=== PATIENT | male | born 1975 | race Caucasian/White ===

== ENCOUNTER 2024-09-08 10:39 | Emergency (ER) | payer OTHER, SELFPAY ==
--- OUTSIDE RECORDS SUMMARY | 2024-09-08 10:42 | XMS REPORT | Clinical Summary ---
Author Name Unknown Organization [facility] Address [address] [place] [address] Care Team Providers Care Hospital Insurance Clerk Name Role Phone Rosa Maria Bernal PhD Unavailable [phone] Addi Jiménez MD Unavailable [phone] Hernan Dick MD Unavailable [phone] Danie Erwin MD Unavailable Addi Cifuentes PhD Unavailable [phone] Nidhi Anderson APRN Unavailable [phone] Robyn Guevara MD Unavailable [phone] Allergies No known active allergies Medications * This document contains information received from the source organization and may not represent a complete record from that organization. losartan (COZAAR) 50 mg tablet Take 50 mg by mouth daily. Active rOPINIRole (REQUIP) 5 mg tablet Take 5 mg by mouth at bedtime. Reported on 11/27/2016 Active LORazepam (ATIVAN) 0.5 mg tabletIndicatio ns:Nausea Second choice for nausea. Use if Zofran ineffective. 30 tablet 6 Active Additional Information Patient not taking.Reported on 03/31/2016 valACYclovir (VALTREX) 500 mg tabletIndicatio ns:Herpes labialis Take 1 tablet (500 mg total) by mouth daily. 90 tablet 3 6 Active Additional Information Patient not taking.Reported on 03/06/2016 gabapentin (NEURONTIN) 300 mg capsuleIndicati ons:Restless legs syndrome (RLS) Take 300mg po QHS X3 days then increase to 600mg po QHS 60 capsule 3 6 Active Additional Information Patient not taking.Reported on 05/15/2016 zolpidem (AMBIEN) 10 mg tabletIndicatio ns:Adjustment disorder with anxiety Take 1 tablet (10 mg total) by mouth nightly as needed for sleep. 30 tablet 2 6 Active Additional Information Patient not taking.Reported on 09/25/2016 diphenhydrAMINE (BENADRYL) 25 mg capsuleIndicati ons:Allergy, unspecified, initial encounter,Aller gic urticaria Take 1 capsule (25 mg total) by mouth every 8 (eight) hours as needed for itching or allergies. 10 capsule 6 Active Additional Information Patient not taking.Reported on 05/15/2016 hydrOXYzine HCl (ATARAX) 25 mg tabletIndicatio ns:Oligodendrog lioma Take 1 tablet (25 mg total) by mouth every 8 (eight) hours as needed for itching. Take regularly at night 90 tablet 2 6 Active Additional Information Patient not taking.Reported on 03/31/2016 sulfamethoxazol e-trimethoprim (BACTRIM DS) 800 mg-160 mg per tablet Take 1 tablet by mouth twice daily. Reported on 11/27/2016 Active ondansetron (ZOFRAN) 8 mg tabletIndicatio ns:Oligodendrog lioma Take 1 tablet by mouth 30 minutes prior to Lomustine (GLEOSTINE) and Procarbazine (MATULANE) then take 1 tablet every 8 hours as needed for nausea and vomiting. 30 tablet 3 6 Active Additional Information Patient not taking.Reported on 11/27/2016 amoxicillin-cla vulanate (AUGMENTIN) 875 mg-125 mg per tablet Take 1 tablet by mouth twice daily. Reported on 11/27/2016 0 7 Active levETIRAcetam (KEPPRA) 1000 mg tabletIndicatio ns:Oligodendrog lioma TAKE ONE TABLET BY MOUTH TWICE DAILY 10 tablet 17 8 Active levETIRAcetam (KEPPRA) 1000 mg tabletIndicatio ns:Oligodendrog lioma Take 1000 mg in am and 1500 mg in pm. 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 with Dr. 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 Gender Identity Not on file Sexual Orientation Not on file 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 Not on file Not on file Obstetrics History Plan of Treatment Health Maintenance Due Date Last Done Comments COVID-19 Vaccine ( - 2023-2 5 season) 2024 Influenza Vaccine (#1) 2024 Pneumococcal Vaccine: Pediat rics (0 to 5 Years) and At-Risk Patients (6 to 64 Years) Aged Out No longer eligi ble based on patient's age to complete this topic Care Teams Hospital Insurance Clerk Relationship Specialty Start Date End Date Rosa Maria Bernal, PhD [address] [place] [address] [email or web address] Physician 10/20/15 Addi Jiménez MD [address] [place] [id number] [email or web address] Physician 10/20/15 Hernan Dick MD [facility] , [address] [place] [address] [email or web address] Physician 10/20/15 Danie Erwin MD [address] [place] [id number] [email or web address] Physician 10/20/15 Addi Cifuentes, PhD [address] [place] [id number] [email or web address] Physician 10/20/15 Nidhi Anderson APRN [address] [place] [id number] [email or web address] Nurse Practitioner 10/20/15 Robyn Guevara MD [address] [place] [id number] [email or web address] Consulting Physician Dermatology 03/06/16
--- NOTE | 2024-09-08 11:38 | RAD REPORT ---
EXAM: CT CHEST WITH CONTRAST CLINICAL INDICATION: upper rib tenderness;Blunt chest trauma TECHNIQUE: Routine CT scan of the chest with intravenous contrast. One or more of the following dose reduction techniques were used: Automated exposure control, adjustment of the mA and/or kV according to patient size, and/or iterative reconstruction. Unless otherwise specified, incidental fi ndings do not require dedicated imaging follow-up. COMPARISON: No prior exam. FINDINGS: LUNGS: Airways are clear. No evidence of airspace or interstitial process. No nodules. PLEURA: No pleural effusion. No pneumothorax. MEDIASTINUM AND LYMPH NODES: No mediastinal mass or fluid collection. Normal size mediastinal, hilar, and axillary lymph nodes. OSSEOUS STRUCTURES AND CHEST WALL: There is a mildly displaced fracture anterior left second rib clos e to the costosternal junction. UPPER ABDOMEN: Prominent diffuse fatty liver. IMPRESSION: Mildly displaced fracture anterior left second rib close to the costosternal junction.
--- NOTE | 2024-09-08 12:10 | ER ---
Nurse's Notes [facility] Name: Kem Chaves Age: 48 yrs Sex: Male : 1975 Arrival Date: 09/08/2024 Time: 10:39 Bed DX2 Private MD: Diagnosis: Fracture of one rib, left side Presentation: 09/08 10:59 Chief complaint: Patient states: he fell on a bar stool approx one week ago, and is ap3 having pain to the left upper chest area since. patient states coughing, sneezing and deep breathing make the pain worse. Coronavirus screen: At this time, the client does not indicate any symptoms associated with coronavirus-19. Ebola Screen: No symptoms or risks identified at this time. Initial Sepsis Screen: Does the patient meet any 2 criteria? No. Patient's initial sepsis screen is negative. Does the patient have a suspected source of infection? No. Patient's initial sepsis screen is negative. Risk Assessment: Do you want to hurt yourself or someone else? Patient reports no desire to harm self or others. Onset of symptoms was September 01, 2024. Mechanism of Injury: Fall. 10:59 Method Of Arrival: Ambulatory ap3 10:59 Acuity: URSZULA 3 ap3 Triage Assessment: 11:02 General: Appears uncomfortable, Behavior is calm, cooperative, appropriate for age. ap3 Pain: Complains of pain in anterior aspect of left upper chest Pain began one week ago. Neuro: Level of Consciousness is awake, alert, obeys commands, Oriented to person, place, time, situation, Appropriate for age Speech is normal. Cardiovascular: Patient's skin is warm and dry. Respiratory: Reports pain with cough pain with respiration Airway is patent Respiratory effort is even, unlabored. Historical: - Allergies: 11:04 No Known Allergies; ap3 - Home Meds: 11:04 lorazepam 0.5 mg Oral tab 1 tab 3 times per day [Active]; Keppra Oral [Active]; ap3 - PMHx: 11:02 Hypertension; Oligodendroglioma; ap3 - Immunization history:: Client reports having NOT received the Covid vaccine. Last tetanus immunization: unknown, Flu vaccine is not up to date. - Infectious Disease History:: Denies. - Social history:: Smoking status: Patient reports the use of cigarette tobacco products, smokes one-half pack cigarettes per day. - Family history:: not pertinent. - Hospitalizations: : No recent hospitalization is reported. Screenin:06 [facility] ED Fall Risk Assessment (Adult) History of falling in the last 3 months, ap3 including since admission Yes- single mechanical fall (1 pt) Confusion or Disorientation No (0 pts) Intoxicated or Sedated No (0 pts) Impaired Gait No (0 pts) Mobility Assist Device Used No (0 pt) Altered Elimination No (0 pt) Score/Fall Risk Level 0 - 2 = Low Risk Oriented to surroundings, Maintained a safe environment, Educated pt \T\ family on fall prevention, incl call for assistance when getting out of bed, Assessed \T\ reinforced patient's understanding of fall precautions, Hourly rounding (assess needs \T\ fall precautionary measures) done, Used ambulatory aids as needed (educated on \T\ assisted with), Used gait belt as appropriate. Abuse screen: Denies threats or abuse. Nutritional screening: No deficits noted. Tuberculosis screening: No symptoms or risk factors identified. Assessment: 12:43 General: Appears in no apparent distress. comfortable, Behavior is calm, cooperative. ss Pain: Complains of pain in anterior aspect of left upper chest Pain currently is 9 out of 10 on a pain scale. Quality of pain is described as tender. Neuro: Level of Consciousness is awake, alert, obeys commands, Oriented to person, place, time, situation. Respiratory: Airway is patent Respiratory effort is even, unlabored, Respiratory pattern is regular, symmetrical. EENT: Oral mucosa is moist. Vital Signs: 10:59 BP 146 / 97; Pulse 86; Resp 18; Temp 98.4(O); Pulse Ox 100% on R/A; ap3 11:03 Weight 102.06 kg; Height 6 ft. 1 in. ; Pain 9/10; ap3 11:03 Body Mass Index 29.68 (102.06 kg, 185.42 cm) ap3 11:03 Pain Scale: Adult ap3 ED Course: 10:43 Patient arrived in ED. sj2 10:47 Myles Rojas MD is Attending Physician. rn 11:02 Triage completed. ap3 11:06 Arm band placed on right wrist. ap3 11:06 Patient maintains SpO2 saturation greater than 95% on room air. ap3 11:26 CT Chest W/ Con In Process Unspecified. EDMS 11:29 Note: 22 G diffusics placed in left AC . ls3 12:44 No provider procedures requiring assistance completed. IV discontinued, intact, ss bleeding controlled, No redness/swelling at site. Pressure dressing applied. Administered Medications: No medications were administered Medication: 12:43 VIS not applicable for this client. ss Outcome: 12:10 Discharge ordered by . rn 12:44 Discharged to home ambulatory, ss 12:44 Condition: good 12:44 Discharge instructions given to patient, Instructed on discharge instructions, follow up and referral plans. Demonstrated understanding of instructions, follow-up care, 12:46 Patient left the ED. ss Signatures: Dispatcher [employer] EDMD Myles Rojas MD MD rn Blanchard, Shelby, RN RN Nicole Alamo RN RN [email or web address] Nikkie Rudolph ls3 Victor Hugo Pozo 2
--- NOTE | 2024-09-08 12:10 | EDPHYS ---
Physician Documentation [facility] Name: Kem Chaves Age: 48 yrs Sex: Male : 1975 Arrival Date: 09/08/2024 Time: 10:39 Bed DX2 Private MD: ED Physician Myles Rojas HPI: 09/08 11:07 This 48 yrs old Male presents to ER via Ambulatory with complaints of Fall Injury. rn 11:07 The patient or guardian reports chest pain that is located primarily in the anterior rn chest wall. 11:07 Onset: 1 week(s) ago. Details of fall: The patient fell from an upright position. rn Associated injuries: The patient sustained injury to the chest. The pain does not radiate. Associated signs and symptoms: Pertinent positives: cough, shortness of breath, Pertinent negatives: abdominal pain. The chest pain is described as sharp, stabbing. Duration: The patient or guardian reports multiple episodes. Modifying factors: The symptoms are alleviated by nothing. the symptoms are aggravated by cough, deep breath. Severity of pain: At its worst the pain was moderate in the emergency department the pain is unchanged. Severity of symptoms: At their worst the symptoms were moderate, in the emergency department the symptoms are unchanged. The patient has not experienced similar symptoms in the past. The patient has not recently seen a physician. Patient reports he tripped and fell forward and landed on a metal bench. Happened 1 week ago and reports isolated injury to the upper ribs anterior chest. No hemoptysis. Reports pain with deep inspiration.. Historical: - Allergies: 11:04 No Known Allergies; ap3 - Home Meds: 11:04 lorazepam 0.5 mg Oral tab 1 tab 3 times per day [Active]; Keppra Oral [Active]; ap3 - PMHx: 11:02 Hypertension; Oligodendroglioma; ap3 - Immunization history:: Client reports having NOT received the Covid vaccine. Last tetanus immunization: unknown, Flu vaccine is not up to date. - Infectious Disease History:: Denies. - Social history:: Smoking status: Patient reports the use of cigarette tobacco products, smokes one-half pack cigarettes per day. - Family history:: not pertinent. - Hospitalizations: : No recent hospitalization is reported. 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 No tenderness along the clavicles or shoulders. Cardiovascular: Regular rate and rhythm. No pulse deficits. Respiratory: No increased work of breathing, no retractions or nasal flaring. Abdomen/GI: Soft, non-tender MS/ Extremity: Pulses equal, no cyanosis. Neurovascular intact. Full, normal range of motion. Equal circumference. Neuro: Awake and alert, GCS 15 Vital Signs: 10:59 BP 146 / 97; Pulse 86; Resp 18; Temp 98.4(O); Pulse Ox 100% on R/A; ap3 11:03 Weight 102.06 kg; Height 6 ft. 1 in. ; Pain 9/10; ap3 11:03 Body Mass Index 29.68 (102.06 kg, 185.42 cm) ap3 11:03 Pain Scale: Adult ap3 MDM: 10:47 Medical Screening Exam initiated rn 11:57 Differential diagnosis: Rib fracture, rib contusion, pneumothorax. Data reviewed: vital rn signs, nurses notes, radiologic studies, and as a result, I will discharge patient. Counseling: I had a detailed discussion with the patient and/or guardian regarding the historical points, exam findings, and any diagnostic results supporting the discharge/admit diagnosis, radiology results, the need for outpatient follow up, to return to the emergency department if symptoms worsen or persist or if there are any questions or concerns that arise at home. Special discussion: I discussed with the patient/guardian in detail that at this point there is no indication for admission to the hospital. It is understood, however, that if the symptoms persist or worsen the patient needs to return immediately for re-evaluation. ED course: CT chest images show mildly displaced left 2nd anterior rib fracture, no pneumothorax, per my interpretation. Will dc home with incentive spirometry and return precautions. . 09/08 11:05 Order name: CT Chest W/ Con; Complete Time: 11:40 rn 09/08 11:05 Order name: IV Start; Complete Time: 12:31 rn Administered Medications: No medications were administered Disposition Summary: 09/08/24 12:10 Discharge Ordered Notes: Location: Home rn Problem: new rn Symptoms: have improved rn Condition: Stable rn Diagnosis - Fracture of one rib, left side rn Followup: rn - With: Private Physician - When: As needed - Reason: Recheck today's complaints, Re-evaluation by your physician Discharge Instructions: - Discharge Summary Sheet rn - Rib Fracture rn - How to Use an Incentive Spirometer rn Forms: - Medication Reconciliation Form rn - 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 EDNH EDMS
[2024-09-08 14:51] VITALS: BP 146/97; TEMP 98.4; O2SAT 100
== END 2024-09-08 12:46 | disposition home or self-care (01) ==
LOC: ER 10:39
DX: S22.32XA Fracture of one rib, left side, initial encounter for closed fracture (principal); W01.198A Fall on same level from slipping, tripping and stumbling with subsequent striking against other object, initial encounter; F17.210 Nicotine dependence, cigarettes, uncomplicated
CPT/HCPCS: 71260; 99283; Q9967

== ENCOUNTER 2024-11-02 08:45 | Emergency (ER) | payer OTHER ==
--- OUTSIDE RECORDS SUMMARY | 2024-11-02 08:49 | XMS REPORT | Clinical Summary ---
Author Name Unknown Organization [facility] Address [address] [place] [address] Care Team Providers Care Agriculture Laboratory Technician Name Role Phone Rosa Maria Bernal PhD Unavailable [phone] Addi Jiménez MD Unavailable [phone] Hernan Dick MD Unavailable [phone] Danie Erwin MD Unavailable Addi Cifuentes PhD Unavailable [phone] Nidhi Anderson APRN Unavailable [phone] Robyn Guevara MD Unavailable [phone] Allergies No known active allergies Medications [...] Site/Laterality Comments BRAIN SURGERY 04/14/2015 Left at [facility] BRAIN SURGERY 09/06/2015 Left at [facility] with Dr. 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 file Not on file Obstetrics History Plan of Treatment Health Maintenance Due Date Last Done Comments COVID-19 Vaccine ( - 2023-2 5 season) 2024 Influenza Vaccine (#1) 2024 Pneumococcal Vaccine Aged Out No long er eligible based on patient's age to complete this topic Care Teams Agriculture Laboratory Technician Relationship Specialty Start Date End Date Rosa Maria Bernal, PhD [address] [place] [address] [email or web address] Physician 10/20/15 Addi Jiménez MD [address] [place] [id number] [email or web address] Physician 10/20/15 Hernan Dick MD [facility] , [address] [place] [address] [email or web address] Physician 10/20/15 Danie Erwin MD [address] [place] [id number] [email or web address] Physician 10/20/15 Addi Cifuentes, PhD [address] [place] [address] [email or web address] Physician 10/20/15 Nidhi Anderson APRN [address] [place] [id number] [email or web address] Nurse Practitioner 10/20/15 Robyn Guevara MD [address] [place] [id number] [email or web address] Consulting Physician Dermatology 03/06/16
[2024-11-02] MEDS ORDERED: IBUPROFEN 400 MG TAB ONE (09:11)
--- NOTE | 2024-11-02 10:26 | RAD REPORT ---
EXAM: CT CHEST, ABDOMEN AND PELVIS WITHOUT CONTRAST CLINICAL INDICATION: Male, 48 years old. [facility] MAIN right lower anterior rib injury;Trauma Bed Name: 8 TECHNIQUE: CT chest, abdomen and pelvis was performed, without IV contrast, as per department protoco l. Axial, sagittal and coronal reconstructions were obtained. One or more of the following dose reduction techniques were used: Automated exposure control, adjustment of the mA and/or kV according to the patient size, and/or iterative reconstruction. Unless otherwise specified, incidental findings do not require dedicated imaging follow-up. COMPARISON: 09/08/2024 FINDINGS: The lack of intravenous contrast limits the sensitivity of this exam for evaluation of solid visceral organs, vascular structures, and retroperitoneum. Chest: LOWER NECK/CHEST WALL: Visualized thyroid gland and soft tissues are normal. LUNGS AND AIRWAYS: Airways are clear. No evidence of airspace or interstitial process. No nodules. PLEURA: No pleural effusion. No pneumothorax. Hemidiaphragms are normally positioned. MEDIASTINUM AND LYMPH NODES: No mediastinal mass or fluid collection. Normal size mediastinal, hilar, and axillary lymph nodes. THORACIC AORTA: Normal caliber and configuration. PULMONARY ARTERIES: Normal caliber. HEART: Unremarkable. Abdomen/Pelvis LIVER: Diffuse parenchymal hypoattenuation suggesting steatosis, with regional fatty sparing near the hilum gallbladder bed GALLBLADDER/BILE DUCTS: No biliary ductal dilatation. PANCREAS: No mass, ductal dilation, or taras-pancreatic fluid. SPLEEN: Normal size. No focal lesion. ADRENALS: Normal; no mass. KIDNEYS AND URETERS: Normal size and contour. No hydronephrosis. GASTROINTESTINAL TRACT: Stomach is non-dilated. Small bowel has normal course and caliber. No colonic wall thickening or pericolonic inflammatory changes. PERITONEUM: No free fluid. LYMPH NODES: No lymphadenopathy. ABDOMINAL AORTA AND OTHER VESSELS: Normal caliber aorta and IVC. URINARY BLADDER: Normal contour. REPRODUCTIVE ORGANS: No pathologic process. MUSCULOSKELETAL: Healing anterior left second rib fracture. ADDITIONAL FINDINGS: None IMPRESSION: Healing anterior left second rib fracture. No acute or significant abnormalities in the chest, abdomen, or pelvis.
--- NOTE | 2024-11-02 10:32 | ER ---
Nurse's Notes [facility] Name: Kem Chaves Age: 48 yrs Sex: Male : 1975 Arrival Date: 11/02/2024 Time: 08:45 Bed 8 Private MD: Diagnosis: Abdominal contusion, chest wall contusion Presentation: 11/02 09:00 Chief complaint: Patient states: Patient states he fell last night around 2100 and hit le1 is R rib area on a metal table. Patient not on blood thinners, no loc, no head trauma. Care prior to arrival: None. Mechanism of Injury: Fall from standing position. Trauma event details: Injury occurred in the [facility], Injury occurred: at home. Injury occurred: November 01, 2024 Injury occurred at: 21:00. Activity prior to arrival: None. 09:00 Acuity: [id number] 4 le1 09:00 Method Of Arrival: Ambulatory le1 09:15 Coronavirus screen: Vaccine status: Patient reports being unvaccinated. Client denies le1 travel out of the [place] in the last 14 days. At this time, the client does not indicate any symptoms associated with coronavirus-19. Ebola Screen: Patient negative for fever greater than or equal to 101.5 degrees Fahrenheit, and additional compatible Ebola Virus Disease symptoms Patient denies exposure to infectious person. Patient denies travel to an Ebola-affected area in the 21 days before illness onset. No symptoms or risks identified at this time. Initial Sepsis Screen: Does the patient meet any 2 criteria? HR > 90 bpm. No. Patient's initial sepsis screen is negative. Does the patient have a suspected source of infection? No. Patient's initial sepsis screen is negative. Risk Assessment: Do you want to hurt yourself or someone else? Patient reports no desire to harm self or others. Onset of symptoms was November 01, 2024. Trauma Activation: Physician: ED Physician; Name: ; Notified At: ; Arrived At: Physician: General Surgeon; Name: ; Notified At: ; Arrived At: Physician: Radiology; Name: ; Notified At: ; Arrived At: Physician: Respiratory; Name: ; Notified At: ; Arrived At: Physician: Lab; Name: ; Notified At: ; Arrived At: 09:17 No trauma activation at this time. 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 - Infectious Disease History:: Denies. - Social history:: Smoking status: Patient reports the use of cigarette tobacco products, smokes one-half pack cigarettes per day, Patient uses alcohol, occasionally. Patient/guardian denies using street drugs, IV drugs. Screenin:07 Abuse screen: Denies threats or abuse. Denies injuries from another. Nutritional le1 screening: No deficits noted. Tuberculosis screening: No symptoms or risk factors identified. Fall risk None identified. Exposure risk/Travel Screening: None identified. 09:14 [facility] ED Fall Risk Assessment (Adult) History of falling in the last 3 months, le1 including since admission Yes- single mechanical fall (1 pt) Confusion or Disorientation No (0 pts) Intoxicated or Sedated No (0 pts) Impaired Gait No (0 pts) Mobility Assist Device Used No (0 pt) Altered Elimination No (0 pt) Score/Fall Risk Level 0 - 2 = Low Risk Oriented to surroundings, Maintained a safe environment, Educated pt \T\ family on fall prevention, incl call for assistance when getting out of bed, Assessed \T\ reinforced patient's understanding of fall precautions, Hourly rounding (assess needs \T\ fall precautionary measures) done, Used ambulatory aids as needed (educated on \T\ assisted with). Primary Survey: 09:03 NO uncontrolled hemorrhage observed. A: The client is awake and alert. The airway is le1 patent. The client responds to verbal stimuli. Airway: patent, No supplemental oxygen in use on arrival. Oral cavity: clear, Trachea midline. Breathing/Chest: Spontaneous respiratory effort, equal unlabored respirations, breath sounds clear bilaterally, regular pattern, symmetrical chest rise and fall. Respiratory effort: spontaneous, unlabored, Breath sounds: clear, Respiratory pattern: regular, Chest inspection: symmetrical rise and fall of the chest. Circulation: No external hemorrhage present. Regular and strong central pulse, skin warm/dry/normal color. Disability Pupils are equal, round, reactive to light and accommodation. Client is alert. 09:14 Exposure/Environment: All clothing and personal items were removed. Forensic evidence le1 collection is not deemed to be indicated at this time. Items placed in patient belonging bag. There is no evidence of uncontrolled external bleeding. Obvious injury(ies) are noted at this time: R side rib cage bruising A warming method has been applied: None. patient refused warm blanket. Reassessment Alertness and Airway: Awake and alert. The airway is patent. Breathing: Spontaneous respiratory effort, equal unlabored respirations, breath sounds clear bilaterally, regular pattern with symmetrical chest rise and fall. Circulation: No external hemorrhage noted. Regular and strong central pulse, skin warm/dry/normal color. Disability: Pupils Pupils are equal, round, reactive to light and accomodation. Alert. Secondary Survey: 09:04 HEENT: No deficits noted. Gastrointestinal: No deficits noted. : No deficits noted. le1 Musculoskeletal: Reports pain in right rib cage. Injury Description: Bruise sustained to R rib cage. Assessment: 09:07 General: Appears in no apparent distress. Behavior is calm, cooperative. Pain: le1 Complains of pain in R rib cage Pain currently is 10 out of 10 on a pain scale. Quality of pain is described as stabbing. Neuro: No deficits noted. EENT: No deficits noted. Cardiovascular: No deficits noted. Respiratory: No deficits noted. GI: No deficits noted. : No deficits noted. Derm: Bruising that is bright red. Musculoskeletal: No deficits noted. Nursing diagnosis: Alteration in comfort: actual related to fall. Vital Signs: 09:06 BP 157 / 95; Pulse 95; Resp 16; Temp 98.2(O); Pulse Ox 95% on R/A; Pain 10/10; le1 10:39 BP 148 / 87; Pulse 77; Resp 16; Temp 98.2(O); Pulse Ox 97% on R/A; Pain 0/10; le1 09:06 Pain Scale: Adult le1 10:39 Pain Scale: Adult le1 Abelardo Coma Score: 09:06 Eye Response: spontaneous(4). Motor Response: obeys commands(6). Verbal Response: le1 oriented(5). Total: 15. Trauma Score (Adult): 09:06 Eye Response: spontaneous(1); Verbal Response: oriented(1); Motor Response: obeys le1 commands(2); Systolic BP: > 89 mm Hg(4); Respiratory Rate: 10 to 29 per min(4); Abelardo Score: 15; Trauma Score: 12 ED Course: 08:48 Patient arrived in ED. im 08:51 Reyes Guillermo, RN is Primary Nurse. le1 08:55 Daryn Guevara MD is Attending Physician. sp3 09:03 Triage completed. le1 09:07 Patient has correct armband on for positive identification. Bed in low position. Call le1 light in reach. Patient maintains SpO2 saturation greater than 95% on room air. 09:07 Pulse ox on. NIBP on. le1 09:[address] via stretcher. le1 09:16 Provided Education on: Informed patient to use call light if needed. le1 09:16 Arm band placed on right wrist. le1 09:17 Thermoregulation: Patient refused warm blanket. le1 09:24 CT Chest Abdomen Pelvis W/O Contrast In Process Unspecified. EDMS 10:47 No provider procedures requiring assistance completed. Patient did not have IV access le1 during this emergency room visit. Administered Medications: 09:13 Drug: Ibuprofen PO 800 mg PO once Route: PO; le1 09:56 Follow up: Response: No adverse reaction; Pain is decreased le1 Medication: 10:48 VIS not applicable for this client. le1 Intake: 09:06 PO: 0ml; Total: 0ml. le1 Output: 09:06 Urine: 0ml; Total: 0ml. le1 Outcome: 10:31 Discharge ordered by MD. sp3 10:47 Discharged to home ambulatory, le1 10:47 Condition: good 10:47 Discharge instructions given to patient, Instructed on discharge instructions, follow up and referral plans. medication usage, Demonstrated understanding of instructions, follow-up care, medications, Prescriptions given X 1, 10:48 Patient's length of stay was not longer than 2 hours. le1 10:49 Patient left the ED. le1 Signatures: Dispatcher [employer] EDMS Daryn Guevara MD MD sp3 Jessica Baumann Reyes Guillermo RN RN le1
--- NOTE | 2024-11-02 10:32 | EDPHYS ---
Physician Documentation [facility] Name: Kem Chaves Age: 48 yrs Sex: Male : 1975 Arrival Date: 11/02/2024 Time: 08:45 Bed 8 Private MD: ED Physician Daryn Guevara HPI: 11/02 09:41 This 48 yrs old Male presents to ER via Ambulatory with complaints of Fall Injury right sp3 ribs. 09:41 48-year-old male with history of hypertension presents to the ED with chief complaint sp3 right-sided lower rib and abdominal pain after sustaining a fall while barbecuing. Patient says he was carrying a tray of food he tripped and fell onto a table. He had a rib injury 2 months ago with a broken rib on the left side. Today he states that that side is not injured and it is on the right side. He denies any difficulty breathing, chest pain, upper back pain, lower abdominal pain, nausea, vomiting, diarrhea or any other signs or symptoms on ROS at this time.. 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 - Infectious Disease History:: Denies. - Social history:: Smoking status: Patient reports the use of cigarette tobacco products, smokes one-half pack cigarettes per day, Patient uses alcohol, occasionally. Patient/guardian denies using street drugs, IV drugs. ROS: 09:42 Constitutional: Negative for fever, chills, and weight loss, Eyes: Negative for injury, sp3 pain, redness, and discharge, ENT: Negative for injury, pain, and discharge, Neck: Negative for injury, pain, and swelling, Cardiovascular: Negative for chest pain, palpitations, and edema, Respiratory: Negative for shortness of breath, cough, wheezing, and pleuritic chest pain, MS/Extremity: Negative for injury and deformity, Skin: Negative for injury, rash, and discoloration, Neuro: Negative for headache, weakness, numbness, tingling, and seizure, Psych: Negative for depression, anxiety, suicide ideation, homicidal ideation, and hallucinations, Allergy/Immunology: Negative for hives, rash, and allergies, Endocrine: Negative for neck swelling, polydipsia, polyuria, polyphagia, and marked weight changes, 09:42 All other systems are negative, Exam: 09:42 Constitutional: This is a well developed, well nourished patient who is awake, alert, sp3 and in no acute distress. Head/Face: Normocephalic, atraumatic. Eyes: Pupils equal round and reactive to light, extra-ocular motions intact. Lids and lashes normal. Conjunctiva and sclera are non-icteric and not injected. Cornea within normal limits. Periorbital areas with no swelling, redness, or edema. ENT: Nares patent. No nasal discharge, no septal abnormalities noted. External auditory canals are clear. Oropharynx with no redness, swelling, or masses, exudates, or evidence of obstruction, uvula midline. Mucous membranes moist. Neck: Trachea midline, no thyromegaly or masses palpated, and no cervical lymphadenopathy. Supple, full range of motion without nuchal rigidity, or vertebral point tenderness. No Meningismus. Cardiovascular: Regular rate and rhythm with a normal S1 and S2. No gallops, murmurs, or rubs. Normal PMI, no JVD. No pulse deficits. Respiratory: Lungs have equal breath sounds bilaterally, clear to auscultation and percussion. No rales, rhonchi or wheezes noted. No increased work of breathing, no retractions or nasal flaring. Back: No spinal tenderness. No costovertebral tenderness. Full range of motion. Skin: Warm, dry with normal turgor. Normal color with no rashes, no lesions, and no evidence of cellulitis. MS/ Extremity: Pulses equal, no cyanosis. Neurovascular intact. Full, normal range of motion. Neuro: Awake and alert, GCS 15, oriented to person, place, time, and situation. Cranial nerves II-XII grossly intact. Motor strength 5/5 in all extremities. Sensory grossly intact. Cerebellar exam normal. Normal gait. Psych: Awake, alert, with orientation to person, place and time. Behavior, mood, and affect are within normal limits. 09:42 Chest/axilla: 4 cm linear abrasion noted along the anterior ribs which is where his pain is. No crepitus noted. Abdomen is mildly tender just inferior to the ribs.. Vital Signs: 09:06 BP 157 / 95; Pulse 95; Resp 16; Temp 98.2(O); Pulse Ox 95% on R/A; Pain 10/10; le1 10:39 BP 148 / 87; Pulse 77; Resp 16; Temp 98.2(O); Pulse Ox 97% on R/A; Pain 0/10; le1 09:06 Pain Scale: Adult le1 10:39 Pain Scale: Adult le1 Mcfarland Coma Score: 09:06 Eye Response: spontaneous(4). Motor Response: obeys commands(6). Verbal Response: le1 oriented(5). Total: 15. Trauma Score (Adult): 09:06 Eye Response: spontaneous(1); Verbal Response: oriented(1); Motor Response: obeys le1 commands(2); Systolic BP: > 89 mm Hg(4); Respiratory Rate: 10 to 29 per min(4); Abelardo Score: 15; Trauma Score: 12 MDM: 08:55 Medical Screening Exam initiated sp3 09:43 Data reviewed: vital signs, nurses notes, radiologic studies. ED course: 48 male with sp3 mechanical fall and injury to the right ribs and upper abdomen. Will obtain CT scan of the chest and abdomen to assess. I am not highly suspicious of significant intra-abdominal injury however mechanism and pain location warrants diagnostic. P.o. pain medicine as requested by patient. Disposition pending workup and patient course.. 10:30 ED course: CT scan negative for any acute trauma. Old left rib fracture noted.. sp3 11/02 08:57 Order name: CT Chest Abdomen Pelvis W/O Contrast; Complete Time: 10:27 sp3 Administered Medications: 09:13 Drug: Ibuprofen PO 800 mg PO once Route: PO; le1 09:56 Follow up: Response: No adverse reaction; Pain is decreased le1 Disposition Summary: 11/02/24 10:31 Discharge Ordered Notes: Location: Home sp3 Condition: Stable sp3 Diagnosis - Abdominal contusion, chest wall contusion sp3 Followup: sp3 - With: Private Physician - When: Upon discharge from the Emergency Department - Reason: Continuance of care Discharge Instructions: - Discharge Summary Sheet sp3 - Chest Contusion, Adult sp3 Forms: - Medication Reconciliation Form sp3 - Antibiotic Education sp3 - Prescription Opioid Use sp3 - Patient Portal Instructions sp3 - Leadership Thank You Letter sp3 Prescriptions: - Tramadol 50 mg Oral Tablet - take 1 tablet ORAL route every 8 hours as needed; 12 tablet; Refills: 0, sp3 Product Selection Permitted Signatures: Dispatcher [employer] Daryn Duffy MD MD sp3 Reyes Guillermo RN RN le1
[2024-11-02 10:55] VITALS: TEMP 98.2
[2024-11-02 10:56] VITALS: BP 148/87; O2SAT 97
== END 2024-11-02 10:49 | disposition home or self-care (01) ==
LOC: ER 08:45
DX: S30.1XXA Contusion of abdominal wall, initial encounter (principal); S20.211A Contusion of right front wall of thorax, initial encounter; F17.210 Nicotine dependence, cigarettes, uncomplicated
CPT/HCPCS: 71250; 74176; 99285